=== PATIENT | female | born 1965 | race Caucasian/White ===

== ENCOUNTER 2020-05-16 08:33 | Outpatient (CLI) | payer BC ==
--- NOTE | 2020-05-16 21:05 | RAD ---
CHEST TWO VIEWS: 05/16/20 No prior films were available for comparison. The heart is normal in size. There is no vascular conge stion or edema. No lobar infiltrates or effusions were seen. There were no acute changes in the bony structures. IMPRESSION: No acute finding. POS: HOME
--- NOTE | 2020-05-16 21:30 | RAD ---
THORACIC SPINE THREE VIEWS: 05/16/20 No fracture or disc space narrowing was seen in the thoracic region. There are some bridging osteophy freya at some of the mid thoracic levels. Much of the cervical spine can be seen on the study and is ev idence that there is some disc space narrowing at C5-C6 with anterior and posterior osteophytes at th is level. IMPRESSION: 1. 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 2. Degenerative changes in the cervical region, particularly at C5-C6. POS: HOME
== END 2020-05-16 08:34 | disposition home or self-care (01) ==
LOC: BURRAD 08:33
PROVIDERS: ATTEND Nurse Practitioner
DX: R10.9 Unspecified abdominal pain (principal); M47.814 Spondylosis without myelopathy or radiculopathy, thoracic region; M47.812 Spondylosis without myelopathy or radiculopathy, cervical region
CPT/HCPCS: 71046; 72072

== ENCOUNTER 2025-06-11 15:20 | Emergency (ER) | payer OTHER, SELFPAY | END 2025-06-11 16:31 | disposition home or self-care (01) | LOC: BURERS 15:20 | DX: G51.0 Bell's palsy (principal); F17.210 Nicotine dependence, cigarettes, uncomplicated; I10 Essential (primary) hypertension; Z71.6 Tobacco abuse counseling | CPT/HCPCS: 70450; 99406 ==

== ENCOUNTER 2025-07-01 13:12 | Emergency (ER) | payer OTHER ==
[~2025-07-01 13:12] MED LIST: Iopamidol 370 76% 100 ML VIAL ONE
[2025-07-01 13:58] LABS: INR-International Normal Ratio 1.1; Prothrombin Time 14.3 sec (12.0-14.7)
[2025-07-01 13:59] LABS: PTT 26.5 sec (22.9-36.1)
[2025-07-01 14:06] LABS: Hematocrit 49.8 % (36.0-47.0); Hemoglobin 18.0 g/dL (12.0-16.0); Mean Corpuscular Hemoglobin 32.8 pg (27.0-31.0); Mean Corpuscular Volume 90.8 fl (78.0-98.0); Platelet Count 96 10x3/uL (130-400); Red Blood Cell (RBC) Count 5.48 mill/uL (4.20-5.40); White Blood Cell (WBC) Count 7.2 10x3/uL (4.8-10.8)
[2025-07-01 14:07] LABS: ALT (SGPT) 76 U/L (Less than 34); AST (SGOT) 66 U/L (11-34); Acetaminophen Less than 10 mcg/mL (Less than 10); Albumin 4.2 g/dL (3.1-4.5); Alkaline Phosphatase 63 U/L (40-110); Anion Gap 20 mmol/L (10-20); BUN (Urea Nitrogen) 9 mg/dL (9.8-20.1); Bilirubin, Total 2.0 mg/dL (0.3-1.2); CK (CPK) 66 U/L (29-168); Calc. Creatinine Clearance 0 mL/min (70-130); Calcium 9.7 mg/dL (7.8-10.44); Carbon Dioxide 24 mmol/L (22-29); Chloride 96 mmol/L (98-107); Globulin 4.0 g/dL (2.4-3.5); Glucose 93 mg/dL (70-105); Potassium 3.8 mmol/L (3.5-5.1); Salicylate Less than 8.0 mg/dL (Less than 8.0); Sodium 136 mmol/L (136-145); Troponin I 0.014 ng/mL (< 0.028)
[2025-07-01 14:27] LABS: MDiff Complete? YES
[2025-07-01 14:29] LABS: Platelet Adequacy Comment Appears Decreased
[2025-07-01 16:00] LABS: Glucose, Urine (Dipstick) Negative (Negative); Leukocyte Negative (Negative); Protein, Urine (Dipstick) Negative (Neg-Trace); Specific Gravity, Urine Less/Equal 1.005 (1.005-1.030)
[2025-07-01 16:10] LABS: Cocaine Metabolite Screen Negative (Negative); THC/Cannabinoid Screen Negative (Negative); Tricyclic Screen Negative (Negative)
[2025-07-01 16:19] LABS: Bacteria/HPF Rare-Few HPF (None Seen); CAUTI Indications for Culture Pelvic or flank pain; RBC/HPF None Seen HPF (0-3); WBC/HPF 0-3 HPF (0-3)
[2025-07-01 16:21] LABS: Urine Culture Reflex No No
== END 2025-07-01 16:14 | disposition short-term general hospital (02) ==
LOC: BURERS 13:12
DX: R53.1 Weakness (principal); R29.810 Facial weakness; R29.702 NIHSS score 2; I10 Essential (primary) hypertension; E03.9 Hypothyroidism, unspecified; F17.210 Nicotine dependence, cigarettes, uncomplicated; Z79.899 Other long term (current) drug therapy; Z79.890 Hormone replacement therapy
CPT/HCPCS: 0042T; 36416; 70450; 70496; 70498; 71045; 80053; 80306; 80307; 81001; 82550; 83880; 84484; 85025; 85610; 85730; 93005; 94760; 36415-59; Q9967

== ENCOUNTER 2025-07-18 18:53 | Emergency (ER) | payer OTHER ==
[2025-07-18 19:50] LABS: Hematocrit 44.3 % (36.0-47.0); Hemoglobin 16.5 g/dL (12.0-16.0); Mean Corpuscular Hemoglobin 32.8 pg (27.0-31.0); Mean Corpuscular Volume 87.8 fl (78.0-98.0); Platelet Count 148 10x3/uL (130-400); Red Blood Cell (RBC) Count 5.04 mill/uL (4.20-5.40); White Blood Cell (WBC) Count 9.4 10x3/uL (4.8-10.8)
[2025-07-18 19:57] LABS: ALT (SGPT) 74 U/L (Less than 34); AST (SGOT) 67 U/L (11-34); Albumin 3.9 g/dL (3.1-4.5); Alkaline Phosphatase 48 U/L (40-110); Anion Gap 18 mmol/L (10-20); BUN (Urea Nitrogen) 17 mg/dL (9.8-20.1); Bilirubin, Total 1.7 mg/dL (0.3-1.2); CK (CPK) 37 U/L (29-168); Calc. Creatinine Clearance 0 mL/min (70-130); Calcium 9.4 mg/dL (7.8-10.44); Carbon Dioxide 25 mmol/L (22-29); Chloride 94 mmol/L (98-107); Globulin 3.8 g/dL (2.4-3.5); Glucose 92 mg/dL (70-105); Magnesium 2.1 mg/dL (1.6-2.6); Potassium 3.0 mmol/L (3.5-5.1); Sodium 134 mmol/L (136-145); Troponin I Less than 0.010 ng/mL (< 0.028)
[2025-07-18 20:07] LABS: MDiff Complete? YES
== END 2025-07-18 22:25 | disposition short-term general hospital (02) ==
LOC: BURERS 18:53
DX: S80.11XA Contusion of right lower leg, initial encounter (principal); R53.1 Weakness; I10 Essential (primary) hypertension; E03.9 Hypothyroidism, unspecified; F17.210 Nicotine dependence, cigarettes, uncomplicated; W19.XXXA Unspecified fall, initial encounter; Z86.73 Personal history of transient ischemic attack (TIA), and cerebral infarction without residual deficits; Z79.899 Other long term (current) drug therapy
CPT/HCPCS: 36415; 70450; 80053; 82550; 83735; 84443; 84484; 85025; 93005